=== PATIENT | male | born 1980 | race Caucasian/White ===

== ENCOUNTER 2018-02-25 12:43 | Emergency (ER) | payer BC ==
[~2018-02-25] VITALS: Ht 182.9 cm; Wt 137.5 kg
[2018-02-25] MEDS ORDERED: KETOROLAC 30 MG/ML VIAL. IV ONE (13:00)
--- NOTE | 2018-02-25 13:06 | PHYS DOC ---
Past History Past Medical History: Depression, Seizure Smoking: Cigarettes Alcohol Use: None Drug Use: None Adult General Chief Complaint Chief Complaint: SEIZURE HPI HPI Patient is a 38 year old male patient with history of seizure brought in by EMS because of a seizure. Patient states he felt lightheadedness and feeling of going to have a seizure and called his girlfriend. Patient's girlfriend found him unresponsive and face down on front yard with blood in his face and leg. EMS reported that patient had a fall from 1-2 feet high and was awake at their arrival. Patient states he is taking Lamictal for seizure and did not miss his medication and denies using drugs and alcohol and lack of sleep or recent stress. Patient states his last episode of seizure was about 2 years ago and he was seen by his neurologist several months ago. Patient complaining of left shoulder pain and he states he had history of multiple shoulder dislocation during episodes of seizure. Patient also complaining of bilateral lower extremity pain. Patient is not up-to-date with his tetanus immunization. Patient's girlfriend presented later on and he stated he take her while she was on her way to eat lunch at home without mentioning about seizure. Patient girlfriend found him unresponsive face down on the grass and was confused and snorting. Patient had another episode of seizure while he was in the grass that last about 2 or 3 minutes as a grand mal seizure without fall she called 911. She is stated that the patient had another episode of seizure one week ago. Review of Systems Review of Systems Constitutional: Denies fever or chills [] Eyes: Denies change in visual acuity, redness, or eye pain [] HENT: Denies nasal congestion or sore throat [] Respiratory: Denies cough or shortness of breath [] Cardiovascular: No additional information not addressed in HPI [] GI: Denies abdominal pain, nausea, vomiting, bloody stools or diarrhea [] : Denies dysuria or hematuria [] Musculoskeletal: Denies back pain, reports joint pain [] Integument: Denies rash or skin lesions [] Neurologic: Reports headache, denies focal weakness or sensory changes [] Endocrine: Denies polyuria or polydipsia [] All other systems were reviewed and found to be within normal limits, except as documented in this note. Physical Exam Physical Exam Constitutional: Well developed, well nourished, mild distress, non-toxic appearance. [] HENT: Normocephalic, mild facial erythema without abrasion or ecchymosis, oropharynx moist, no oral exudates, nose normal. [] Eyes: PERRLA, EOMI, conjunctiva normal, no discharge. [] Neck: Normal range of motion, no tenderness, supple, no stridor. [] Cardiovascular:Heart rate regular rhythm, no murmur [] Lungs & Thorax: Bilateral breath sounds clear to auscultation [] Abdomen: Bowel sounds normal, soft, no tenderness, no masses, no pulsatile masses. [] Skin: Warm, dry, no erythema, no rash. [] Back: No tenderness, no CVA tenderness. [] Extremities: Left shoulder with painful range of motion without deformity or sign of injury, bilateral lower extremity superficial abrasion and contusion, no cyanosis, no clubbing, ROM intact, no edema. [] Neurologic: Alert and oriented X 3, normal motor function, normal sensory function, no focal deficits noted. [] Psychologic: Affect normal, judgement normal, mood normal. [] EKG EKG EKG at 1305 showed normal sinus rhythm at rate of 95, normal interval and axis, no acute ST and T wave abnormality. Radiology/Procedures Radiology/[place] [address] IMAGING REPORT Signed PATIENT: NATASHA FAIR ACCOUNT: [id number] : 1980 LOCATION: ER AGE: 38 SEX: M EXAM STATUS: REG ER ORD. PHYSICIAN: SVITLANA BARNES MD REASON: seizure and fall PROCEDURE: CT HEAD AND CERVICAL SPINE WO Examination: CT head and cervical spine without contrast CT HEAD INDICATION: SEIZURE WITH FALL COMPARISON: None Available. Exposure: One or more of the following individualized dose reduction techniques were utilized for this examination: 1. Automated exposure control 2. Adjustment of the mA and/or kV according to patient size 3. Use of iterative reconstruction technique TECHNIQUE: 5 mm contiguous axial images were obtained from the skull base to the vertex in both bone and soft tissue algorithm. FINDINGS: No abnormal attenuation within the brain parenchyma. No evidence of acute intracranial hemorrhage. No extra-axial fluid collections. No mass effect or midline shift. Ventricular size is appropriate. Basal cisterns are patent. No fractures identified.Cruz-white differentiation is preserved.Globes and orbits are within normal limits. Paranasal sinuses and mastoid air cells are clear. IMPRESSION: No acute infection findings. CT CERVICAL SPINE INDICATION: SEIZURE WITH FALL COMPARISON: None Available. Technique: 2.5 mm contiguous axial images were obtained from the skull base through the cervicothoracic junction in both bone and soft tissue algorithm. Additional sagittal and coronal reconstructions were also performed. FINDINGS: Vertebral body height and alignment are maintained. Cervical lordosis is preserved. The lateral masses of C1 are aligned upon C2. No fractures identified. The bony canal is patent throughout. No significant degenerative changes are identified. The paraspinous soft tissues are unremarkable. Visualized intracranial contents are unremarkable. Lung apices are clear. IMPRESSION: 1. No acute fracture cervical spine. Correlate clinically Electronically signed by: Sameer Underwood MD (02/25/2018 2:02 PM) [facility] DICTATED AND SIGNED BY: SAMEER UNDERWOOD MD DATE: 02/25/18 0902 CC: SVITLANA BARNES MD; PCP,NO ~ [place] [address] IMAGING REPORT Signed PATIENT: NATASHA FAIR ACCOUNT: [id number] : 1980 LOCATION: ER AGE: 38 SEX: M EXAM STATUS: REG ER ORD. PHYSICIAN: SVITLANA BARNES MD REASON: seizure and fall PROCEDURE: SHOULDER 2+V LEFT Examination: 2 views of the left shoulder HISTORY: History of left shoulder pain postseizure COMPARISON: None available Findings/ impression: Exam is limited due to patient body habitus. On the limited views , the humerus head appears to be within the glenoid. There is questionable Hill-Sachs deformity in the posterolateral humerus head could be due to prior dislocation. Correlate clinically. Electronically signed by: Sameer Underwood MD (02/25/2018 1:45 PM) [facility] DICTATED AND SIGNED BY: SAMEER UNDERWOOD MD DATE: 02/25/18 8528 CC: SVITLANA BARNES MD; PCP,NO ~ Course & Med Decision Making Course & Med Decision Making Pertinent Labs and Imaging studies reviewed. (See chart for details) Evaluation of patient in ER showed 38-year-old male patient brought in by EMS because of 2 episodes of seizure today. Patient had facial contusion and extremity abrasion with normal movement of left shoulder. X-ray did not show acute fracture or dislocation. I offered patient admission because of status epilepticus but he wants to go home and follow up with his neurologist or on- call neurology as outpatient. Patient signed AGAINST MEDICAL ADVICE. Dragon Disclaimer Dragon Disclaimer This electronic medical record was generated, in whole or in part, using a voice recognition dictation system. Departure Departure: Impression: Primary Impression: Status epilepticus Additional Impressions: Sprain of left shoulder Tobacco abuse Tobacco abuse counseling Noncompliance by refusing service Facial contusion Contusion of lower extremity Disposition: 07 AGAINST MEDICAL ADVICE (at 1429) Condition: IMPROVED Referrals: PCP,SEMAJ (PCP) CHASE HEBERT MD Patient Instructions: Contusion, Seizure, Adult Additional Instructions: Follow-up with on-call neurology in one or two-day Continue home medication Scripts Hydrocodone Bit/Acetaminophen (NORCO 5-325 TABLET) 1 Each Tablet 1 TAB PO PRN Q6HRS PRN for PAIN, #10 TAB 0 Refills Prov: SVITLANA BARNES MD 02/25/18 Problem Qualifiers SVITLANA BARNES MD Feb 25, 2018 13:06
[2018-02-25] MEDS ORDERED: DIPHTH,PERTUSS(ACELL),TET TOX 0.5 ML DISP.SYRIN. VAX IM ONE (13:15)
[2018-02-25 13:38] LABS: BASO % 1 % (0-3); EOS # 0.1 x10^3/uL (0.0-0.7); EOS % 1 % (0-3); HEMATOCRIT 51.5 % (39.0-53.0); HEMOGLOBIN 17.7 g/dL (13.0-17.5); LYMPH # 1.6 x10^3/uL (1.0-4.8); LYMPH % 25 % (24-48); MEAN CORPUSCULAR HEMOGLOBIN 32 pg (25-35); MEAN CORPUSCULAR HGB CONC 34 g/dL (31-37); MEAN CORPUSCULAR VOLUME 92 fL (79-100); MONO # 0.4 x10^3/uL (0.0-1.1); MONO % 6 % (0-9); NEUT # 4.4 x10^3uL (1.8-7.7); NEUT % 68 % (31-73); PLATELET COUNT 185 x10^3/uL (140-400); RED BLOOD COUNT 5.62 x10^6/uL (4.30-5.70); RED CELL DISTRIBUTION WIDTH 13.3 % (11.5-14.5); WHITE BLOOD COUNT 6.5 x10^3/uL (4.0-11.0)
--- NOTE | 2018-02-25 13:49 | RAD ---
Examination: 2 views of the left shoulder HISTORY: History of left shoulder pain postseizure COMPARISON: None available Findings/ impression: Exam is limited due to patient body habitus. On the limited views , the humerus head appears to be within the glenoid. There is questionable Hill-Sachs deformity in the posterolateral humerus head could be due to prior dislocation. Correlate clinically. Electronically signed by: Sameer Underwood MD (02/25/2018 1:45 PM) [place] [id number]
[2018-02-25 13:52] LABS: ALBUMIN 3.7 g/dL (3.4-5.0); ALBUMIN/GLOBULIN RATIO 1.2 (1.0-1.7); CALCIUM 8.8 mg/dL (8.5-10.1); GFR 83.6; POTASSIUM 3.5 mmol/L (3.5-5.1); TOTAL BILIRUBIN 0.4 mg/dL (0.2-1.0); TOTAL PROTEIN 6.9 g/dL (6.4-8.2)
[2018-02-25] MEDS ORDERED: LORazepam 2 MG/ML VIAL IV ONE (14:00)
[2018-02-25] MEDS ORDERED: IV NORMAL SALINE 1,000ML 1,000 ML IV ONE (14:00)
--- NOTE | 2018-02-25 14:06 | RAD ---
Examination: CT head and cervical spine without contrast CT HEAD INDICATION: SEIZURE WITH FALL COMPARISON: None Available. Exposure: One or more of the following individualized dose reduction techniques were utilized for this examination: 1. Automated exposure control 2. Adjustment of the mA and/or kV according to patient size 3. Use of iterative reconstruction technique TECHNIQUE: 5 mm contiguous axial images were obtained from the skull base to the vertex in both bone and soft tissue algorithm. FINDINGS: No abnormal attenuation within the brain parenchyma. No evidence of acute intracranial hemorrhage. No extra-axial fluid collections. No mass effect or midline shift. Ventricular size is appropriate. Basal cisterns are patent. No fractures identified.Cruz-white differentiation is preserved.Globes and orbits are within normal limits. Paranasal sinuses and mastoid air cells are clear. IMPRESSION: No acute infection findings. CT CERVICAL SPINE INDICATION: SEIZURE WITH FALL COMPARISON: None Available. Technique: 2.5 mm contiguous axial images were obtained from the skull base through the cervicothoracic junction in both bone and soft tissue algorithm. Additional sagittal and coronal reconstructions were also performed. FINDINGS: Vertebral body height and alignment are maintained. Cervical lordosis is preserved. The lateral masses of C1 are aligned upon C2. No fractures identified. The bony canal is patent throughout. No significant degenerative changes are identified. The paraspinous soft tissues are unremarkable. Visualized intracranial contents are unremarkable. Lung apices are clear. IMPRESSION: 1. No acute fracture cervical spine. Correlate clinically Electronically signed by: Sameer Underwood MD (02/25/2018 2:02 PM) [facility]
[2018-02-25 14:30] VITALS: BP 116/61
[2018-02-25 14:31] LABS: AMPHETAMINE/METHAMPHETAMINE NEG (NEG); BARBITURATES NEG (NEG); BENZODIAZEPINES NEG (NEG); CANNABINOIDS POS (NEG); COCAINE NEG (NEG); METHADONE NEG (NEG); OPIATES NEG (NEG); PHENCYCLIDINE NEG (NEG)
[2018-02-25] MEDS ORDERED: HYDR-3165 PO (14:31)
[2018-02-25 14:34] LABS: BACTERIA,URINE 0 /HPF (0-FEW); BILIRUBIN,URINE NEG (NEG); CLARITY,URINE HAZY; COLOR,URINE YELLOW; GLUCOSE,URINE NEG (NEG); NITRITE,URINE NEG (NEG); SQUAMOUS EPITHELIAL CELL,UR OCC /LPF; UROBILINOGEN,URINE 2 mg/dL (0.2 mg/dL); WBC,URINE OCC /HPF (0-4)
[2018-02-25 14:35] LABS: AMORPHOUS SEDIMENT,UR PRESENT /HPF; GRANULAR CASTS,URINE OCC /HPF
--- NOTE | 2018-02-25 14:48 | EKG ---
[address] [address] Test Date: 2018-02-25 Test Time: 13:05:00 Pat Name: NATASHA FAIR Department: Room: Gender: M [employer]ot Shift Manager: : 1980 Requested By: SVITLANA BARNES Order Number: [id number] Reading MD: Ad Leung Measurements Intervals [place] Rate: 95 P: -106 DE: 166 QRS: 4 QRSD: 92 T: 49 QT: 352 QTc: 446 Interpretive Statements SINUS RHYTHM Electronically Signed On 03-03-2018 10:07:38 [employer] by Ad Leung
== END 2018-02-25 14:36 | disposition left against medical advice (07) ==
LOC: ER 12:43
DX: G40.901 Epilepsy, unspecified, not intractable, with status epilepticus (principal); R42 Dizziness and giddiness; S43.402A Unspecified sprain of left shoulder joint, initial encounter; S00.83XA Contusion of other part of head, initial encounter; S80.12XA Contusion of left lower leg, initial encounter; S80.11XA Contusion of right lower leg, initial encounter; Z91.19 Patient's noncompliance with other medical treatment and regimen; F32.9 Major depressive disorder, single episode, unspecified; F17.210 Nicotine dependence, cigarettes, uncomplicated; Z71.6 Tobacco abuse counseling; W17.89XA Other fall from one level to another, initial encounter; Y93.89 Activity, other specified; Y92.096 Garden or yard of other non-institutional residence as the place of occurrence of the external cause; Y99.8 Other external cause status
CPT/HCPCS: 36415; 70450; 72125; 73030; 80053; 80307; 81001; 85025; 90471; 90715; 93005; 96361; 96374; 96375; 99284; G0480; J1885; J2060; J7030